=== PATIENT | male | born 1980 | race Caucasian/White ===

== ENCOUNTER 2021-01-28 12:05 | Observation (INO) | payer OTHER, MEDICAID ==
[~2021-01-28] VITALS: Ht 162.6 cm; Wt 74.8 kg
--- NOTE | 2021-01-28 12:15 | NUR ---
machine sand mixer completed. Father of pt at bedside. Pt is cooperative with interview but has flight of thought, disorganized pattern of thought, and verbalizing delusions. Pt states he has had a break where he is short. When asked what that means to him, he states he is supposed to be 6'6" tall but looks and feels 5'6" (which is documented ht). Pt admits he has been schizophrenic since age 18, has been taking all medications at night like he is supposed to be, and new medication (Caplyta) was started approximately 1 month ago. After interview, pt's father stating to this RN that pt threatened "Bad things will happen to you all if I don't get out of here," and is not behaving normally. Mother just had surgery for breast CA removal, and sister is at home with small children while her is out of town to help with mother.
--- NOTE | 2021-01-28 12:32 | NUR ---
at bedside for exam.
--- NOTE | 2021-01-28 12:35 | NUR ---
boiler control technician outside room for 1:1 direct observation continuously.
--- NOTE | 2021-01-28 12:40 | NUR ---
Pt requested to give UA sample, but he states he is not currently able to provide one. Sitter aware and supplies in reach when pt needs to use the restroom next.
--- NOTE | 2021-01-28 12:42 | NUR ---
plant technical specialist at bedside for draw.
--- NOTE | 2021-01-28 12:55 | NUR ---
Report given and care transferred to new primary RN at this time. Pt aware.
[2021-01-28] MEDS ORDERED: RISP4TAB66 PO (12:57)
[2021-01-28] MEDS ORDERED: BENZ1TAB61 PO (12:57)
[2021-01-28] MEDS ORDERED: CHLO200T2 PO (12:57)
[2021-01-28] MEDS ORDERED: LUMA42CA PO (12:57)
[2021-01-28] MEDS ORDERED: DIVA-61 PO (12:57)
[2021-01-28 13:03] LABS: BASOPHILS % (AUTO) 0 % (0-1); EOSINOPHILS % (AUTO) 0 % (1-7); LYMPHOCYTES % (AUTO) 17 % (22-44); MEAN CORPUSCULAR HEMOGLOBIN 31.1 pg (27.5-34.5); MEAN CORPUSCULAR HGB CONC 35.4 g/dL (33.2-36.2); MEAN PLATELET VOLUME 6.9 fL (7.4-10.4); MONOCYTES % (AUTO) 16 % (2-9); NEUTROPHILS % (AUTO) 67 % (42-75); PLATELET COUNT 207 x10^3/uL (130-400); RED CELL DISTRIBUTION WIDTH 13.6 % (9.4-14.8)
[2021-01-28 13:09] LABS: ALBUMIN 3.9 g/dL (3.4-5.0); ANION GAP 9 mmol/L (5-15); CALCIUM 9.2 mg/dL (8.5-10.1); CHLORIDE 95 mmol/L (98-107); CREATININE 1.12 mg/dL (0.7-1.3)
--- NOTE | 2021-01-28 13:19 | NUR ---
PT RESTING IN BED AT THIS TIME WITH FATHER AT BEDSIDE. PT CALM AND COOPERATIVE. PT AWARE A URINE IS NEEDED. CUP IS AT BEDSIDE. SITTER AT DOOR FOR FREQUENT OBS.
[2021-01-28 13:21] LABS: SALICYLATE LEVEL < 1.7 mg/dL (2.8-20.0)
[2021-01-28] MEDS ORDERED: POTASSIUM CHLORIDE 20 MEQ PACKET PO ONE (14:00)
[2021-01-28 15:13] LABS: AMPHETAMINE SCREEN, URINE Negative (Negative); BARBITURATE SCREEN, URINE Negative (Negative); BENZODIAZEPINE SCREEN, URINE Negative (Negative); CANNABINOID SCREEN, URINE Negative (Negative); COCAINE SCREEN, URINE Negative (Negative); METHADONE SCREEN, URINE Negative (Negative); OPIATE SCREEN, URINE Negative (Negative)
[2021-01-28] MEDS ORDERED: POTASSIUM CHLORIDE 20 MEQ PACKET ONE (15:54)
[2021-01-28] MEDS ORDERED: SODIUM CHLORIDE 0.9% 1,000ML IVBOLUS ONE (16:00)
--- NOTE | 2021-01-28 16:20 | NUR ---
late entry:: IV STARTED FOR PT TO RECEIVE ORDERED FLUIDS. PT ALSO GIVEN ORDERED MEDS. PT ON CARD MONITOR, NO STATED NEEDS. SITTER AT DOOR FOR FREQUENT OBS.
--- NOTE | 2021-01-28 16:35 | NUR ---
THROUGHPUT: PT ON A LEGAL HOLD, MEDICALLY CLEARED, INSURANCE IS [facility], AND [facility], SENT FULL PACKET TO [facility], [facility], AND [facility] IS NOT CONTRACTED.
--- NOTE | 2021-01-28 17:10 | NUR ---
AJ with [facility] called and they have no male beds at this time. will put on board and review in morning or as pts are d/c'ed.
--- NOTE | 2021-01-28 17:41 | NUR ---
late entry::MEAL TRAY ORDERED. PT SITTING CALMLY IN BED. SITTER AT BEDSIDE.
--- NOTE | 2021-01-28 18:05 | NUR ---
PT RESTING CALMLY IN BED. NO STATED NEEDS. SITTER AT DOOR FOR OBS.
--- NOTE | 2021-01-28 18:55 | NUR ---
Note undone in EDM - 01/28/21 at 1906 by LUCIANA FIRST ENCOUNTER WITH PATIENT. PATIENT LYING IN STRETCHER. MOM AT BEDSIDE. PATIENT ON 4LNC (BASELINE 02). PATIENT REQUESTING PILLOWS/ BLANKET. MOM/ PATIENT UPDATED ON POC. 1:[address] SI PRECAUTIONS IN PLACE. WILL CONTINUE TO MONITOR.
--- NOTE | 2021-01-28 19:00 | NUR ---
FIRST ENCOUNTER WITH PATIENT. PATIENT LYING IN STRETCHER HOOKED UP TO PATIENT SCHEDULER. 1:[address] ROOM SECURE. SI PRECAUTIONS IN PLACE. PATIENT DENIES NEEDS AT THIS TIME. WILL CONTINUE TO MONITOR.
--- NOTE | 2021-01-28 19:26 | NUR ---
FIRST ENCOUNTER WITH PATIENT. PATIENT LYING IN STRETCHER ATTACHED TO INFORMATION SYSTEMS SECURITY DEVELOPER. PATIENT DENIES NEEDS AT THIS TIME AND STATES HE IS HERE TO GET HELP WITH ALL HIS BODY PROBLEMS. PATIENT CONFIRMED HE IS COMFORTABLE. I ADVISED PATIENT TO LET US KNOW IF HE NEEDS ANYTHING. PATIENT VERBALIZED UNDERSTANDING. WILL CONTINUE TO MONITOR.
--- NOTE | 2021-01-28 20:10 | NUR ---
PATIENT PROVIDED WITH DRINKS REQUESTED. PATIENT DIDNT WANT THE FOOD TRAY JUST IS REALLY THIRSTY. PATIENT DENIES ANY OTHER NEEDS AT THIS TME. WILL CONTINUE TO MONITOR.
[2021-01-28] MEDS: NICOTINE 21 MG/24 HR PATCH.TD24 TD SCH (21:35)
[2021-01-28] MEDS ORDERED: RISPERIDONE 2 MG TABLET ONE (21:37)
[2021-01-28] MEDS ORDERED: BENZTROPINE 1 MG TABLET ONE (21:37)
[2021-01-28] MEDS ORDERED: DIVALPROEX 500 MG TAB.ER.24H ONE (21:38)
[2021-01-28] MEDS: RISPERIDONE 2 MG TABLET PO SCH (21:40)
[2021-01-28] MEDS: DIVALPROEX 500 MG TAB.ER.24H PO SCH (21:40)
[2021-01-28] MEDS: BENZTROPINE 1 MG TABLET PO SCH (21:40)
--- NOTE | 2021-01-28 21:40 | NUR ---
ADMIN NIGHT MEDICATIONS. PATIENT REFUSING NICOTINE PATCH AT THIS TIME STATING THAT HE WILL BE OK WITHOUT IT. DENIES ANY OTHER NEEDS. 1:[address] SI PRECAUTIONS REMAIN IN PLACE. WILL CONTINUE TO MONITOR.
--- NOTE | 2021-01-28 22:15 | NUR ---
PATIENT LYING IN STRETCHER WITH EYES CLOSED. NAD. 1:[address] SI PRECAUTIONS REMAIN IN PLACE. ROOM REMAINS IN SECURE. WILL CONTINUE TO MONITOR.
--- NOTE | 2021-01-28 23:05 | NUR ---
PATIENT LYING IN STRETCHER WITH EYES CLOSED. NAD. 1:[address] SI PRECAUTIONS REMAIN IN PLACE. ROOM REMAINS IN SECURE. WILL CONTINUE TO MONITOR.
--- NOTE | 2021-01-29 00:20 | NUR ---
PATIENT LYING IN STRETCHER WITH EYES CLOSED. NAD. 1:[address] SI PRECAUTIONS REMAIN IN PLACE. ROOM REMAINS IN SECURE. WILL CONTINUE TO MONITOR.
--- NOTE | 2021-01-29 01:00 | NUR ---
PATIENT RESTING IN BED, NO NOTED NEEDS AT THIS TIME. EVEN-UNLABORED RESPIRATIONS NOTED. SITTER WITHIN VIEW OF PATIENT. WILL CONTINUE TO MONITOR.
--- NOTE | 2021-01-29 01:05 | NUR ---
REPORT GIVEN TO DINA HOWARD.
--- NOTE | 2021-01-29 02:00 | NUR ---
PATIENT RESTING IN BED, NO NOTED NEEDS AT THIS TIME. EVEN-UNLABORED RESPIRATIONS NOTED. SITTER WITHIN VIEW OF PATIENT. WILL CONTINUE TO MONITOR.
--- NOTE | 2021-01-29 03:00 | NUR ---
PATIENT RESTING IN BED, NO NOTED NEEDS AT THIS TIME. EVEN-UNLABORED RESPIRATIONS NOTED. SITTER WITHIN VIEW OF PATIENT. WILL CONTINUE TO MONITOR.
--- NOTE | 2021-01-29 04:00 | NUR ---
PATIENT RESTING IN BED, NO NOTED NEEDS AT THIS TIME. EVEN-UNLABORED RESPIRATIONS NOTED. SITTER WITHIN VIEW OF PATIENT. WILL CONTINUE TO MONITOR.
--- NOTE | 2021-01-29 05:06 | NUR ---
PATIENT RESTING IN BED, NO NOTED NEEDS AT THIS TIME. EVEN-UNLABORED RESPIRATIONS NOTED. VSS, WILL CONTINUE TO MONITOR.
--- NOTE | 2021-01-29 06:47 | NUR ---
REPORT GIVEN TO DINA SILVA
--- NOTE | 2021-01-29 07:00 | NUR ---
Report from Koby Kruse. First contact with patient, pt sitting up in bed watching tv. He is calm, cooperative and denies any SI or HI, denies visual or auditiory hallucinations. Pt offerred nicotine patch but declines at this time. Ordered safety tray pt states he only wants coffee. Sitter in line of site, will continue to monitor. Room safety updated.
--- NOTE | 2021-01-29 07:47 | NUR ---
Note maritza in EDM - 01/29/21 at 0748 by LILLIE late entry:: IV STARTED FOR PT TO RECEIVE ORDERED FLUIDS. PT ALSO GIVEN ORDERED MEDS. PT ON CARD MONITOR, NO STATED NEEDS. SITTER AT DOOR FOR FREQUENT OBS.
--- NOTE | 2021-01-29 07:53 | NUR ---
Pt requesting shower, informed CN; will arrange for time with additional staffing to take to shower. DC'd PIV to left FA.
--- NOTE | 2021-01-29 08:16 | NUR ---
Safety tray provided to patient, pt sitting up in [facility]. Waiting for psych evaluation, is interviewable at this time.
[2021-01-29] MEDS ORDERED: NICOTINE 21 MG/24 HR PATCH.TD24 ONE (08:46)
[2021-01-29] MEDS ORDERED: BENZTROPINE 1 MG TABLET ONE ×2 (08:46→22:20)
[2021-01-29] MEDS: BENZTROPINE 1 MG TABLET PO SCH ×2 (08:50→22:28)
[2021-01-29] MEDS: NICOTINE 21 MG/24 HR PATCH.TD24 TD SCH (08:50)
--- NOTE | 2021-01-29 08:57 | NUR ---
Pt provided with nicotine patch and his 9am diane.
--- NOTE | 2021-01-29 09:24 | NUR ---
Call from father for update.
--- NOTE | 2021-01-29 11:59 | NUR ---
Pt requested to use phone to call father, permission granted.
--- NOTE | 2021-01-29 12:37 | NUR ---
Lunch safety tray ordered, pt remains calm cooperative. Sitter in line of site.
--- NOTE | 2021-01-29 12:47 | NUR ---
Pt eating lunch, remains in line of site of sitter.
--- NOTE | 2021-01-29 13:55 | NUR ---
ASSUMED CARE OF PATIENT. REPORT GIVEN FROM DINA SILVA. PT RESTING IN ROOM. SITTER AT DOOR. NO ACUTE DISTRESS NOTED. WILL CONTINUE TO MONITOR.
--- NOTE | 2021-01-29 14:51 | NUR ---
PT BRUSHED TEETH, COM HAIR AND WASHED FACE. PT NOW RESTING IN ROOM. VS STABLE. SITTER AT DOOR NO ACUTE DISTRESS. WILL CONTINUE TO MONITOR.
--- NOTE | 2021-01-29 15:52 | NUR ---
PT RESTING IN ROOM. NO ACUTE DISTRESS NOTED. SITTER AT DOOR. WILL CONTINUE TO MONITOR.
--- NOTE | 2021-01-29 16:22 | NUR ---
PT MOVED TO A HOSPITAL BED. NO ACUTE DISTRESS NOTED. SITTER AT DOOR. WILL CONTINUE TO MONITOR.
--- NOTE | 2021-01-29 17:26 | NUR ---
PT RESTING IN ROOM. NO ACUTE DISTRESS NOTED. SITTER AT DOOR. WILL CONTINUE TO MONITOR
--- NOTE | 2021-01-29 17:50 | NUR ---
PT EATING DINNER IN ROOM. NO ACUTE DISTRESS. SITTER AT DOOR.
--- NOTE | 2021-01-29 18:41 | NUR ---
PT RESTING IN ROOM. NO ACUTE DISTRESS NOTED. WILL CONTINUE TO MONITOR. SITTER AT DOOR.
--- NOTE | 2021-01-29 18:55 | NUR ---
report recieved from hira molina. pt restin in bed, in line of sight of giuseppe
--- NOTE | 2021-01-29 18:55 | NUR ---
report given to DINA Rhoades
--- NOTE | 2021-01-29 21:00 | NUR ---
PT RESTING IN BED, DENIES ANY NEEDS. IN LINE OF SIGHT OF SITTER.
[2021-01-29] MEDS ORDERED: RISPERIDONE 2 MG TABLET ONE (22:20)
[2021-01-29] MEDS ORDERED: DIVALPROEX 500 MG TAB.ER.24H ONE (22:20)
[2021-01-29] MEDS: RISPERIDONE 2 MG TABLET PO SCH (22:28)
[2021-01-29] MEDS: DIVALPROEX 500 MG TAB.ER.24H PO SCH (22:28)
--- NOTE | 2021-01-29 22:30 | NUR ---
PT GETTING A LITTLE AGITATED, STATES HE WANTS TO GO TO A [facility]. PT ABLE TO BE REDIRECTED TO ROOM. MEDICATED WITH NIGHT MEDS PER EMAR. WILL CONTINUE TO MONITOR. IN LINE OF SIGHT OF SITTER
--- NOTE | 2021-01-30 02:34 | NUR ---
RECEIVED REPORT FROM ELINA ARROYO. TRANSFER OF CARE.
--- NOTE | 2021-01-30 03:29 | NUR ---
Patient is resting comfortably in bed. Bed in lowest, rails engaged, call light on lap. Vital Signs within normal limits. WCTM. THIS NURSE ASKED PT IF HE WANTED A BREAKFAST TRAY AND PT SAID HE WOULD TELL THIS NURSE LATER IF HE WAS NUGRY. PT A&OX4, BREATHING EVN AND UNLABORED. SAFETY PRECAUTIONS PUT INTO PLACE. GARAGE DOORS SECURED. SITTER OUTSDIE ROOM. BELONGINGS LOCKED IN LOCKERS. WCTM
--- NOTE | 2021-01-30 06:01 | NUR ---
pt repeatedly asking for cigarettes. pt asked if he could have dad drop off two packs of cigarettes but this nurse denied request. this nurse asked pt if he wanted me to ask ask ERMD if he could have a nicotine patch but pt refused. pt awaiting bed at [facility]. paul. pt lying in hospital bed fully awake. no additional needs or questions at this time.
--- NOTE | 2021-01-30 06:59 | NUR ---
GAVE REPORT TO HOANG ARROYO. TRANSFER OF CARE
[2021-01-30 07:55] VITALS: BP 125/82
--- NOTE | 2021-01-30 07:58 | NUR ---
Meal provided, safety precautions in place. Pt resting in bed.
[2021-01-30] MEDS ORDERED: NICOTINE 21 MG/24 HR PATCH.TD24 ONE (08:36)
[2021-01-30] MEDS ORDERED: BENZTROPINE 1 MG TABLET ONE (08:36)
[2021-01-30] MEDS: BENZTROPINE 1 MG TABLET PO SCH (08:40)
[2021-01-30] MEDS: NICOTINE 21 MG/24 HR PATCH.TD24 TD SCH (08:41)
--- NOTE | 2021-01-30 11:20 | NUR ---
Lucas PRIEST at bedside for eval.
--- NOTE | 2021-01-30 13:15 | NUR ---
REPORT FROM Nya ARROYO.
--- NOTE | 2021-01-30 14:07 | NUR ---
PT IN SITTING UP IN BED, ALL NEEDS MET AT THIS TIME. SITTER OUTSIDE OF ROOM FOR SAFETY MONITORING.
--- NOTE | 2021-01-30 14:50 | NUR ---
PT BECAME VERBALLY AGRESSIVE TOWARD SITTER, PT REFUSING TO TAKE PO MEDS AND BECAME MORE AGITATED.
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
--- NOTE | 2021-01-30 15:09 | NUR ---
PT AGREED TO TAKE MEDICATION. MEDICATED PER JUL.
--- NOTE | 2021-01-30 16:15 | NUR ---
PT COOPERATIVE, AGREES TO BEHAVE CALMLY, RESTRAINTS DC'D, SECURITY ON STANDBY.
--- NOTE | 2021-01-30 18:57 | NUR ---
REPORT TO ANDREW ARROYO.
--- NOTE | 2021-01-30 19:00 | NUR ---
Assumed care of pt. Pt resting comfortably at this time. Denies needs, awaiting placement.
--- NOTE | 2021-01-30 19:56 | NUR ---
Report given to MARISOL Loera RN.
--- NOTE | 2021-01-30 20:46 | NUR ---
Patient resting comfortably at this time. Awaiting transport to inpatient bed on psych unit. Sitter at bedside denies further needs at this time.
--- NOTE | 2021-01-30 21:25 | NUR ---
PT TRANSPORTED TO [facility] AT THIS TIME. ACCOMAPNED BY ED natueS X2.
[2021-01-31] MEDS ORDERED: DIVA500T17 PO (14:46)
[2021-01-31] MEDS ORDERED: DIVA250T14 PO (14:46)
== END 2021-01-30 21:25 ==
LOC: ED 16:18 → EDIP 01-29 07:54
PROVIDERS: ADMIT Emergency Medicine; ATTEND Emergency Medicine
DX: F25.9 Schizoaffective disorder, unspecified (principal); Z20.822 Contact with and (suspected) exposure to COVID-19; E87.6 Hypokalemia; E87.1 Hypo-osmolality and hyponatremia; E86.0 Dehydration; F17.200 Nicotine dependence, unspecified, uncomplicated; Z79.899 Other long term (current) drug therapy
CPT/HCPCS: 36415; 80048; 80164; 80299; 80307; 80320; 80329; 82040; 84443; 85025; 87426; 93005; 96360; 96361; 99284; G0378; J7030; Q0161; G0480

== ENCOUNTER 2021-01-30 18:01 | Inpatient (IN) | payer OTHER, MEDICAID ==
[~2021-01-30] VITALS: Ht 160 cm; Wt 74.6 kg
[~2021-01-30 18:01] MED LIST: BENZ1TAB61 PO; CHLO200T2 PO; DIVA-61 PO; LUMA42CA PO; RISP4TAB66 PO
[2021-01-30] MEDS ORDERED: ACETAMINOPHEN 325 MG TABLET PO PRN (19:30)
[2021-01-30] MEDS ORDERED: DOCUSATE 100 MG CAPSULE PO PRN (19:30)
[2021-01-30] MEDS ORDERED: POLYETHYLENE GLYCOL 17 GM PACKET PO PRN (19:30)
[2021-01-30] MEDS ORDERED: ONDANSETRON ODT 4 MG PO PRN (19:30)
[2021-01-30] MEDS ORDERED: BISACODYL 10 MG SUPP PR PRN (19:30)
[2021-01-30 21:30] VITALS: BP 120/85
[2021-01-30 21:45] VITALS: BP 120/85
[2021-01-30] MEDS ORDERED: RISPERIDONE 2 MG TABLET PO SCH (22:00)
[2021-01-30] MEDS: DIVALPROEX 500 MG TAB.ER.24H PO SCH (22:18)
[2021-01-30] MEDS: BENZTROPINE 1 MG TABLET PO SCH (22:19)
[2021-01-31 07:44] VITALS: BP 112/78
[2021-01-31] MEDS: BENZTROPINE 1 MG TABLET PO SCH ×2 (08:58→20:15)
[2021-01-31] MEDS: NICOTINE 21 MG/24 HR PATCH.TD24 TD SCH (08:59)
[2021-01-31 09:01] LABS: CHOL/HDL RATIO 2.4; FREE T4 (FREE THYROXINE) 1.41 ng/dL (0.76-1.46); LDL/HDL RATIO 1.1 (0.5-3.0)
[2021-01-31] MEDS ORDERED: DIVA250T14 PO (14:46)
[2021-01-31] MEDS ORDERED: DIVA500T17 PO (14:46)
[2021-01-31 19:19] VITALS: BP 124/87
[2021-01-31] MEDS ORDERED: POTASSIUM CHLORIDE 20 MEQ TAB.ER.PRT PO ONE (20:00)
[2021-01-31] MEDS: DIVALPROEX 500 MG TAB.ER.24H PO SCH (20:15)
[2021-01-31] MEDS: CHLORPROMAZINE 100MG TAB PO SCH (20:15)
[2021-01-31] MEDS ORDERED: PALIPERIDONE 3 MG TAB.ER.24 PO SCH (21:00)
[2021-02-01 07:19] VITALS: BP 120/82
[2021-02-01] MEDS: BENZTROPINE 1 MG TABLET PO SCH ×2 (08:34→20:41)
[2021-02-01] MEDS: CHLORPROMAZINE 100MG TAB PO SCH ×2 (08:34→20:41)
[2021-02-01] MEDS: NICOTINE 21 MG/24 HR PATCH.TD24 TD SCH (08:35)
[2021-02-01] MEDS ORDERED: PALIPERIDONE 3 MG TAB.ER.24 PO SCH (09:00)
[2021-02-01 12:57] LABS: MICROSCOPIC INDICATED
[2021-02-01] MEDS: AMOXICILLIN/CLAV 875-125MG TABLET PO SCH ×2 (14:39→20:41)
[2021-02-01 19:22] VITALS: BP 110/77
[2021-02-01] MEDS: DIVALPROEX 500 MG TAB.ER.24H PO SCH (20:41)
[2021-02-01] MEDS: PALIPERIDONE 3 MG TAB.ER.24 PO SCH (20:41)
[2021-02-02 07:10] VITALS: BP 105/75
[2021-02-02] MEDS: CHLORPROMAZINE 100MG TAB PO SCH ×2 (08:16→20:23)
[2021-02-02] MEDS: NICOTINE 21 MG/24 HR PATCH.TD24 TD SCH (08:16)
[2021-02-02] MEDS: AMOXICILLIN/CLAV 875-125MG TABLET PO SCH (08:16)
[2021-02-02] MEDS: BENZTROPINE 1 MG TABLET PO SCH ×2 (08:16→20:32)
[2021-02-02] MEDS ORDERED: PALIPERIDONE PALMITATE 156 MG/ML IM ONE ×2 (10:00→13:00)
[2021-02-02] MEDS: CEFDINIR 300 MG CAPSULE PO SCH ×2 (13:11→20:25)
[2021-02-02 19:34] VITALS: BP 16/75
[2021-02-02] MEDS: PALIPERIDONE 3 MG TAB.ER.24 PO SCH (20:24)
[2021-02-02] MEDS: DIVALPROEX 500 MG TAB.ER.24H PO SCH (20:25)
[2021-02-03 07:32] VITALS: BP 108/72
[2021-02-03] MEDS: BENZTROPINE 1 MG TABLET PO SCH ×2 (08:31→20:19)
[2021-02-03] MEDS: CEFDINIR 300 MG CAPSULE PO SCH ×2 (08:31→20:19)
[2021-02-03] MEDS: CHLORPROMAZINE 100MG TAB PO SCH ×2 (08:31→20:18)
[2021-02-03] MEDS: NICOTINE 21 MG/24 HR PATCH.TD24 TD SCH ×2 (08:32→08:37)
[2021-02-03] MEDS ORDERED: PALIPERIDONE PALMITATE 156 MG/ML IM ONE (10:00)
[2021-02-03 19:24] VITALS: BP 102/72
[2021-02-03] MEDS: DIVALPROEX 500 MG TAB.ER.24H PO SCH (20:18)
[2021-02-03] MEDS: PALIPERIDONE 3 MG TAB.ER.24 PO SCH (20:19)
[2021-02-04 05:37] VITALS: BP 83/58
[2021-02-04] MEDS: CHLORPROMAZINE 100MG TAB PO SCH ×2 (08:25→20:27)
[2021-02-04] MEDS: BENZTROPINE 1 MG TABLET PO SCH ×2 (08:25→20:27)
[2021-02-04] MEDS: CEFDINIR 300 MG CAPSULE PO SCH ×2 (08:26→20:27)
[2021-02-04] MEDS: NICOTINE 21 MG/24 HR PATCH.TD24 TD SCH (08:28)
[2021-02-04 11:00] VITALS: BP 113/80
[2021-02-04 19:33] VITALS: BP 133/84
[2021-02-04] MEDS: PALIPERIDONE 3 MG TAB.ER.24 PO SCH (20:27)
[2021-02-04] MEDS: DIVALPROEX 500 MG TAB.ER.24H PO SCH (20:27)
[2021-02-05 07:35] VITALS: BP 106/74
[2021-02-05] MEDS: BENZTROPINE 1 MG TABLET PO SCH ×2 (08:06→20:31)
[2021-02-05] MEDS: CEFDINIR 300 MG CAPSULE PO SCH ×2 (08:06→20:31)
[2021-02-05] MEDS: CHLORPROMAZINE 100MG TAB PO SCH ×2 (08:06→20:31)
[2021-02-05] MEDS: NICOTINE 21 MG/24 HR PATCH.TD24 TD SCH (08:07)
[2021-02-05 19:53] VITALS: BP 107/76
[2021-02-05] MEDS: DIVALPROEX 500 MG TAB.ER.24H PO SCH (20:31)
[2021-02-05] MEDS: PALIPERIDONE 3 MG TAB.ER.24 PO SCH (20:31)
[2021-02-06 07:29] VITALS: BP 92/66
[2021-02-06] MEDS: NICOTINE 21 MG/24 HR PATCH.TD24 TD SCH (09:00)
[2021-02-06] MEDS: CHLORPROMAZINE 100MG TAB PO SCH ×2 (09:53→20:07)
[2021-02-06] MEDS: CEFDINIR 300 MG CAPSULE PO SCH ×2 (09:53→20:07)
[2021-02-06] MEDS: BENZTROPINE 1 MG TABLET PO SCH ×2 (09:54→20:07)
[2021-02-06 19:25] VITALS: BP 123/85
[2021-02-06] MEDS: PALIPERIDONE 3 MG TAB.ER.24 PO SCH (20:07)
[2021-02-06] MEDS: DIVALPROEX 500 MG TAB.ER.24H PO SCH (20:07)
[2021-02-07 07:30] VITALS: BP 106/73
[2021-02-07] MEDS: NICOTINE 21 MG/24 HR PATCH.TD24 TD SCH (09:00)
[2021-02-07] MEDS: CHLORPROMAZINE 100MG TAB PO SCH ×2 (10:08→20:09)
[2021-02-07] MEDS: BENZTROPINE 1 MG TABLET PO SCH ×2 (10:08→20:09)
[2021-02-07] MEDS: CEFDINIR 300 MG CAPSULE PO SCH ×2 (10:08→20:09)
[2021-02-07 19:17] VITALS: BP 114/80
[2021-02-07] MEDS: PALIPERIDONE 3 MG TAB.ER.24 PO SCH (20:09)
[2021-02-07] MEDS: DIVALPROEX 500 MG TAB.ER.24H PO SCH (20:09)
[2021-02-08 07:22] VITALS: BP 105/72
[2021-02-08] MEDS: BENZTROPINE 1 MG TABLET PO SCH (08:53)
[2021-02-08] MEDS: CEFDINIR 300 MG CAPSULE PO SCH (08:53)
[2021-02-08] MEDS: CHLORPROMAZINE 100MG TAB PO SCH (08:53)
[2021-02-08] MEDS: NICOTINE 21 MG/24 HR PATCH.TD24 TD SCH (08:53)
[2021-02-08] MEDS ORDERED: CEFD300C37 PO (10:11)
[2021-02-08] MEDS ORDERED: CHLO100T6 PO (10:11)
[2021-02-08] MEDS ORDERED: PALI156D IM (10:11)
[2021-02-08] MEDS ORDERED: DIVA500T4 PO (10:11)
[2021-02-08] MEDS ORDERED: CHLO25TA4 PO (10:11)
[2021-02-08] MEDS ORDERED: BENZ1TAB61 PO (10:11)
[2021-02-08] MEDS ORDERED: NICO-587 TD (10:11)
[2021-02-08] MEDS ORDERED: PALI3TAB11 PO (10:11)
== END 2021-02-08 16:02 | disposition home or self-care (01) | DRG 885 ==
LOC: 3E 21:26
PROVIDERS: ADMIT Psychiatry & Neurology Psychosomatic Medicine; ATTEND Psychiatry & Neurology Psychosomatic Medicine
DX: F25.0 Schizoaffective disorder, bipolar type (principal); F22 Delusional disorders; E87.6 Hypokalemia; Z79.899 Other long term (current) drug therapy
CPT/HCPCS: 36415; 71045; 80061; 81001; 82607; 84439; 84443; 87077; 87086; 87186; J2426; Q0161